=== PATIENT | female | born 1985 | race Two or more races ===

== ENCOUNTER 2018-07-24 18:47 | Emergency (ER) | payer MEDICAID ==
[~2018-07-24] VITALS: Ht 152.4 cm; Wt 90.7 kg
--- NOTE | 2018-07-24 19:02 | NUR ---
Patient discharged to home in stable conditon. Written and verbal after care instructions given. Patient verbalizes understanding of instructions. Walked out of ER with no distress noted
== END 2018-07-24 19:03 | disposition home or self-care (01) ==
LOC: ER 18:49
DX: S50.862A Insect bite (nonvenomous) of left forearm, initial encounter (principal); W57.XXXA Bitten or stung by nonvenomous insect and other nonvenomous arthropods, initial encounter; Y93.89 Activity, other specified; Y92.89 Other specified places as the place of occurrence of the external cause; Y99.8 Other external cause status
CPT/HCPCS: A4663

== ENCOUNTER 2018-09-28 11:29 | Emergency (ER) | payer SELFPAY ==
[~2018-09-28] VITALS: Ht 160 cm; Wt 90.7 kg
[2018-09-28] MEDS ORDERED: SILVER SULFADIAZINE 1% CREAM 50 GM TP ONE (11:45)
[2018-09-28] MEDS ORDERED: SILVER SULFADIAZINE 1% CREAM 25 GM TUBE TP ONE (11:46)
--- NOTE | 2018-09-28 11:57 | NUR ---
meds placed topically, pt d/c'd homne, aci/rx x2 given. pt ambulated w/o diff/took all belongings.
[2018-09-28 11:58] VITALS: BP 111/69
== END 2018-09-28 11:59 | disposition home or self-care (01) ==
LOC: ER 11:29
DX: T21.21XA Burn of second degree of chest wall, initial encounter (principal); T21.22XA Burn of second degree of abdominal wall, initial encounter; X10.0XXA Contact with hot drinks, initial encounter; Y93.89 Activity, other specified; Y92.89 Other specified places as the place of occurrence of the external cause; Y99.8 Other external cause status
CPT/HCPCS: 16020; A4663